=== PATIENT | female | born 1930 | race Hispanic/Latino ===

== ENCOUNTER 2017-11-11 22:18 | Emergency (ER) | payer MEDICARE ==
[2017-11-12 00:27] LABS: Hematocrit 45.2 % (30.3-42.9); Hemoglobin 15.3 gm/dl (10.1-14.3); Mean Corpuscular HGB Conc 34 % (30-34); Mean Corpuscular Hemoglobin 33 pg (28-32); Mean Corpuscular Volume 97 fl (79-97); Platelet Count 193 K/mm3 (140-440); Red Blood Count 4.67 M/mm3 (3.65-5.03); Red Cell Distribution Width 14.3 % (13.2-15.2); White Blood Count 10.8 K/mm3 (4.5-11.0)
[2017-11-12 00:43] LABS: Alanine Aminotransferase 12 units/L (7-56); Albumin 4.1 g/dL (3.9-5); Albumin/Globulin Ratio 1.9 %; Alkaline Phosphatase 80 units/L (35-129); Anion Gap 20 mmol/L; BUN/Creatinine Ratio 25; Blood Urea Nitrogen 15 mg/dL (7-17); Calcium 9.7 mg/dL (8.4-10.2); Carbon Dioxide 18 mmol/L (22-30); Chloride 98.6 mmol/L (98-107); Glucose 167 mg/dL (65-100); Potassium 3.1 mmol/L (3.6-5.0); Sodium 133 mmol/L (137-145); Total Protein 6.3 g/dL (6.3-8.2)
[2017-11-12 00:45] LABS: Lithium 0.1 mmol/L (0.0-1.2)
[2017-11-12] MEDS ORDERED: K-DUR PO ONE (01:00)
[2017-11-12 01:02] LABS: Urine Drugs of Abuse Note Disclamer
--- NOTE | 2017-11-12 01:06 | Emergency Department Report ---
ED Psych HPI - General Chief Complaint: Psych Stated Complaint: DEMENTIA Time Seen by Provider: 11/11/17 23:16 Source: EMS Mode of arrival: Stretcher - History of Present Illness Initial Comments: Patient was sent her by her sons and daughter. I discussed patient with her son , Yuri, and her daughter, Serena Dong. Patient had been seeing psychiatrist Dr. Edis Palmer until recently as he has changed his practice. He gave her 3 months meds but she will use the meds too quickly and then will run out. The last 4 nights she has kept her son Yuri up every night with her complaint of anxiety. He then let the other son Kenton take her today. At Yuri's house he reports she wanted to go to the hospital and if he didn't take her then she would run out into the street and get hit by a car. At Kenton's house she threatened to stab herself with a screwdriver. She then locker herself in Yuri 's truck and peed in it. She has known dementia but was hospitalized last year for a similar occurance. She also found a bottle of pradaxa and started taking it when she was supposed be off due to the risk of falls. MD Complaint: suicidal ideation, other (Feels anxious.) -: Gradual, week(s) (2) Associated Psychiatric Symptoms: suicidal ideation History of same: Yes Quality: constant, getting worse Improves With: none Worsens With: none Context: not taking psychiatric Associated Symptoms: confusion, other (anxiety) Treatments Prior to Arrival: none If Self Harm: has plan - Related Data Home Medications Medication Instructions Recorded Confirmed Last Taken Citalopram Hydrobromide [celeXA] 20 mg PO DAILY 03/19/17 03/19/17 1 Day Ago ~03/18/17 Divalproex ER [Depakote ER] 250 mg PO DAILY 03/19/17 03/19/17 1 Day Ago ~03/18/17 Donepezil [Aricept] 10 mg PO QDAY 03/19/17 03/19/17 1 Day Ago ~03/18/17 Escitalopram Oxalate [Lexapro] 5 mg PO DAILY 03/19/17 03/19/17 1 Day Ago ~03/18/17 ISOSORBIDE MONOnitrate [Monoket] 20 mg PO BID 03/19/17 03/19/17 1 Day Ago ~03/18/17 Levothyroxine [Synthroid] 75 mcg PO QAM 03/19/17 03/19/17 1 Day Ago ~03/18/17 Loratadine [Claritin] 10 mg PO DAILY 03/19/17 03/19/17 1 Day Ago ~03/18/17 Potassium Chloride [K-Dur] 10 meq PO QDAY 03/19/17 03/19/17 1 Day Ago ~03/18/17 Promethazine [Phenergan TAB] 25 mg PO Q6HR PRN 03/19/17 03/19/17 1 Day Ago ~03/18/17 amLODIPine [Norvasc] 10 mg PO DAILY 03/19/17 03/19/17 1 Day Ago ~03/18/17 clonazePAM [Klonopin] 1 mg PO DAILY PRN 03/19/17 03/19/17 1 Day Ago ~03/18/17 glipiZIDE [glipiZIDE ER] 5 mg PO DAILY 03/19/17 03/19/17 1 Day Ago ~03/18/17 Previous Rx's Medication Instructions Recorded Last Taken Type Pantoprazole [Protonix TAB] 40 mg PO QDAY #14 tablet 03/22/17 Unknown Rx Allergies Allergy/AdvReac Type Severity Reaction Status Date / Time lidocaine AdvReac Unknown Verified 11/11/17 23:01 ED Review of Systems ROS: Stated complaint: DEMENTIA Other details as noted in HPI Constitutional: denies: chills, fever Eyes: denies: eye pain, eye discharge, vision change ENT: denies: ear pain, throat pain Respiratory: denies: cough, shortness of breath, wheezing Cardiovascular: denies: chest pain, palpitations Endocrine: no symptoms reported Gastrointestinal: denies: abdominal pain, nausea, diarrhea Genitourinary: denies: urgency, dysuria, discharge Musculoskeletal: denies: back pain, joint swelling, arthralgia Skin: denies: rash, lesions Neurological: denies: headache, weakness, paresthesias Psychiatric: anxiety, suicidal thoughts. denies: depression Hematological/Lymphatic: denies: easy bleeding, easy bruising ED Past Medical Hx - Past Medical History Previous Medical History?: Yes Hx Hypertension: Yes Hx Diabetes: Yes Additional medical history: A fib - Surgical History Past Surgical History?: Yes Hx Cholecystectomy: Yes Hx Appendectomy: Yes - Social History Smoking Status: Never Smoker Substance Use Type: None - Medications Home Medications: Home Medications Medication Instructions Recorded Confirmed Last Taken Type Citalopram Hydrobromide [celeXA] 20 mg PO DAILY 03/19/17 03/19/17 1 Day Ago History ~03/18/17 Divalproex ER [Depakote ER] 250 mg PO DAILY 03/19/17 03/19/17 1 Day Ago History ~03/18/17 Donepezil [Aricept] 10 mg PO QDAY 03/19/17 03/19/17 1 Day Ago History ~03/18/17 Escitalopram Oxalate [Lexapro] 5 mg PO DAILY 03/19/17 03/19/17 1 Day Ago History ~03/18/17 ISOSORBIDE MONOnitrate [Monoket] 20 mg PO BID 03/19/17 03/19/17 1 Day Ago History ~03/18/17 Levothyroxine [Synthroid] 75 mcg PO QAM 03/19/17 03/19/17 1 Day Ago History ~03/18/17 Loratadine [Claritin] 10 mg PO DAILY 03/19/17 03/19/17 1 Day Ago History ~03/18/17 Potassium Chloride [K-Dur] 10 meq PO QDAY 03/19/17 03/19/17 1 Day Ago History ~03/18/17 Promethazine [Phenergan TAB] 25 mg PO Q6HR PRN 03/19/17 03/19/17 1 Day Ago History ~03/18/17 amLODIPine [Norvasc] 10 mg PO DAILY 03/19/17 03/19/17 1 Day Ago History ~03/18/17 clonazePAM [Klonopin] 1 mg PO DAILY PRN 03/19/17 03/19/17 1 Day Ago History ~03/18/17 glipiZIDE [glipiZIDE ER] 5 mg PO DAILY 03/19/17 03/19/17 1 Day Ago History ~03/18/17 Pantoprazole [Protonix TAB] 40 mg PO QDAY #14 tablet 03/22/17 Unknown Rx ED Physical Exam - General Limitations: Other General appearance: alert, anxious - Head Head exam: Present: atraumatic, normocephalic - Eye Eye exam: Present: normal appearance - ENT ENT exam: Present: mucous membranes moist - Neck Neck exam: Present: normal inspection - Respiratory Respiratory exam: Present: normal lung sounds bilaterally. Absent: respiratory distress - Cardiovascular Cardiovascular Exam: Present: regular rate, normal rhythm. Absent: systolic murmur, diastolic murmur, rubs, gallop - GI/Abdominal GI/Abdominal exam: Present: soft, normal bowel sounds - Extremities Exam Extremities exam: Present: normal inspection - Back Exam Back exam: Present: normal inspection - Neurological Exam Neurological exam: Present: alert, oriented X3 - Psychiatric Psychiatric exam: Present: anxious, suicidal ideation, other (paranoid thinking) - Skin Skin exam: Present: warm, dry, intact, normal color. Absent: rash ED Medical Decision Making - Lab Data Result diagrams: 11/11/17 23:55 11/11/17 23:55 Low potassium but otherwise unremarkable. Slightly elevated TSH. - Medical Decision Making Patient appears to have worsening dementia combined with severe anxiety to the point of self-harm and neglect. I have consulted psych and they did feel she was appropriate for placement possibly at [facility]. She is medically cleared. I gave her oral potassium although she appears to be chronically low on potassium per old labs. Her TSH was slightly elevated but it not likely the cause of her current behavior. Critical care attestation.: If time is entered above; I have spent that time in minutes in the direct care of this critically ill patient, excluding procedure time. ED Disposition Clinical Impression: Anxiety Suicidal behavior Qualifiers: Attempted self-injury: without attempted self-injury Qualified Code(s): R46.89 - Other symptoms and signs involving appearance and behavior Dementia Qualifiers: Dementia type: Alzheimer's disease Alzheimer's disease onset: late-onset Dementia behavioral disturbance: with behavioral disturbance Qualified Code(s): G30.1 - Alzheimer's disease with late onset; F02.81 - Dementia in other diseases classified elsewhere with behavioral disturbance; F02.81 - Dementia in other diseases classified elsewhere with behavioral disturbance; F02.81 - Dementia in other diseases classified elsewhere with behavioral disturbance Hypothyroidism Qualifiers: Hypothyroidism type: acquired Qualified Code(s): E03.9 - Hypothyroidism, unspecified Disposition: DC/TX-65 PSY HOSP/PSY UNIT Is pt being admited?: No Does the pt Need Aspirin: No Condition: Stable Instructions: Dementia (ED), Anxiety (ED) Time of Disposition: 01:11
[2017-11-12 01:28] LABS: Bilirubin,Urine NEG (Negative); Blood,Urine NEG (Negative); Ketones,Urine NEG (Negative); Leukocyte Esterase,Urine SM (Negative); Mucus,Urine FEW /HPF; Nitrite,Urine NEG (Negative); Protein,Urine <15 mg/dL mg/dL (Negative); Urobilinogen,Urine < 2.0 mg/dL (<2.0)
[2017-11-12] MEDS ORDERED: TYLENOL PO ONE (03:50)
[2017-11-12 05:07] LABS: Anisocytosis 1+; Blastocytes % (Manual) 0 %; Diff Status Complete; Eosinophils % (Manual) 0 % (0.0-4.3); Platelet Estimate Consistent w Auto
--- NOTE | 2017-11-12 10:28 | Consultation ---
History of Present Illness - Reason for Consult Consult date: 11/12/17 Reason for consult: Mental Health Evaluation Requesting physician: [facility] - Chief Complaint Chief complaint: "I didn't do anything wrong" - History of Present Psychiatric Illness 87 y.o. white female presenting to [facility] for aggressive behavior and SI's. Today patient was calm and cooperative during the assessment. She stated that she was "joking" about walking into traffic to kill herself. She denies stating that she would use a screwdriver to harm herself. When asked about taking Pradaxa, she would not confirm or deny. Per collateral from her daughter Serena Dong at , she stated that her mother's behavior over the past few weeks has been bizarre and aggressive. She stated that her mother yells and screams throughout the day. She stated that her mother did tell her brother that she would kill herself with a screwdriver and walk into traffic. The patient was able to ID the current [place] President and state her . She recalled 1/3 numbers (5,7,10) within 5 mins. She denies SI/HI's and AVH's. She denies sleep disturbance. She denies recreational drug use and alcohol consumption (etoh). The patient denies any abuse by family members. Medications and Allergies Allergies Allergy/AdvReac Type Severity Reaction Status Date / Time lidocaine AdvReac Unknown Verified 11/11/17 23:01 Home Medications Medication Instructions Recorded Confirmed Last Taken Type Citalopram Hydrobromide [celeXA] 20 mg PO DAILY 03/19/17 03/19/17 1 Day Ago History ~03/18/17 Divalproex ER [Depakote ER] 250 mg PO DAILY 03/19/17 03/19/17 1 Day Ago History ~03/18/17 Donepezil [Aricept] 10 mg PO QDAY 03/19/17 03/19/17 1 Day Ago History ~03/18/17 Escitalopram Oxalate [Lexapro] 5 mg PO DAILY 03/19/17 03/19/17 1 Day Ago History ~03/18/17 ISOSORBIDE MONOnitrate [Monoket] 20 mg PO BID 03/19/17 03/19/17 1 Day Ago History ~03/18/17 Levothyroxine [Synthroid] 75 mcg PO QAM 03/19/17 03/19/17 1 Day Ago History ~03/18/17 Loratadine [Claritin] 10 mg PO DAILY 03/19/17 03/19/17 1 Day Ago History ~03/18/17 Potassium Chloride [K-Dur] 10 meq PO QDAY 03/19/17 03/19/17 1 Day Ago History ~03/18/17 Promethazine [Phenergan TAB] 25 mg PO Q6HR PRN 03/19/17 03/19/17 1 Day Ago History ~03/18/17 amLODIPine [Norvasc] 10 mg PO DAILY 03/19/17 03/19/17 1 Day Ago History ~03/18/17 clonazePAM [Klonopin] 1 mg PO DAILY PRN 03/19/17 03/19/17 1 Day Ago History ~03/18/17 glipiZIDE [glipiZIDE ER] 5 mg PO DAILY 03/19/17 03/19/17 1 Day Ago History ~03/18/17 Pantoprazole [Protonix TAB] 40 mg PO QDAY #14 tablet 03/22/17 Unknown Rx Past psychiatric history - Past Medical History Past Medical History: diabetes, hypertension Past Surgical History: appendectomy, cholecystectomy - past Psychiatric treatment and history Psych: Anxiety psychiatric treatment history: Patient was seen by Dr Dickey for outpatient psy services. Fam psy hx of depression/anxiety. - Social History Social history: lives with family Mental Status Exam - Vital signs Last Vital Signs Temp Pulse Resp 16 11/12/17 05:05 BP 122/53 11/12/17 01:00 Pulse Ox 94 11/12/17 04:35 - Exam Narrative exam: MSE: Appearance: calm, cooperative Behavior: regular eye contact Speech: regular rate and tone Mood: "okay" Affect: congruent to mood Thought Process: circumstantial Thought Content: denies SI/HI's and AVH's Motor Activity: ambulatory Cognition: A/Ox3 Insight: variable Judgment: variable Results Result Diagrams: 11/11/17 23:55 11/11/17 23:55 Abnormal lab results 11/11/17 11/11/17 11/11/17 Range/Units 23:55 23:55 23:55 Hgb 15.3 H (10.1-14.3) gm/dl Hct 45.2 H (30.3-42.9) % MCH 33 H (28-32) pg Lymphocytes % (Manual) 38.0 H (13.4-35.0) % Sodium 133 L (137-145) mmol/L Potassium 3.1 L (3.6-5.0) mmol/L Carbon Dioxide 18 L (22-30) mmol/L Creatinine 0.6 L (0.7-1.2) mg/dL Glucose 167 H (65-100) mg/dL TSH 4.410 H (0.270-4.200) mlU/mL Salicylates (2.8-20.0) mg/dL Phenytoin (10.0-20.0) ug/mL 11/11/17 Range/Units 23:55 Hgb (10.1-14.3) gm/dl Hct (30.3-42.9) % MCH (28-32) pg Lymphocytes % (Manual) (13.4-35.0) % Sodium (137-145) mmol/L Potassium (3.6-5.0) mmol/L Carbon Dioxide (22-30) mmol/L Creatinine (0.7-1.2) mg/dL Glucose (65-100) mg/dL TSH (0.270-4.200) mlU/mL Salicylates 1.0 L (2.8-20.0) mg/dL Phenytoin 0.8 L (10.0-20.0) ug/mL All other labs normal. Assessment and Plan Assessment and plan: Impression: Hx of Dementia per collateral information. Today patient was calm and cooperative during the assessment. DDx: R/O Mood DO Recommendation/Plan: Continue 1013 with pending placement to [facility].
[2017-11-12 12:35] VITALS: BP 145/80
== END 2017-11-12 13:01 ==
LOC: ED 22:18
DX: F41.9 Anxiety disorder, unspecified (principal); R45.851 Suicidal ideations; G30.1 Alzheimer's disease with late onset; F02.81 Dementia in other diseases classified elsewhere, unspecified severity, with behavioral disturbance; E03.9 Hypothyroidism, unspecified; E11.9 Type 2 diabetes mellitus without complications
CPT/HCPCS: 36415; 80053; 80178; 80185; 80307; 81001; 84443; 85007; 85025; 99285; G0480; 80320